=== PATIENT | male | born 1960 | race Caucasian/White ===

== ENCOUNTER → 2022-03-08 14:21 | Outpatient (CLI) | payer MEDICAID, SELFPAY ==
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
--- NOTE | 2022-03-08 14:56 | XR_ITS ---
FINAL REPORT CLINICAL HISTORY: edema FINDINGS: PA and lateral views of the chest were obtained. There is no prior exam for comparison. The cardiac and mediastinal silhouettes are within normal limits. There is evidence of old granulomatous disease. The lungs are otherwise clear. There is no pleural effusion or pneumothorax. No acute osseous abnormality is identified. IMPRESSION: No radiographic evidence of acute cardiac or pulmonary disease. Reviewed, Interpreted and Dictated by Jillian Mello MD Transcribed by Elbert Romero Authenticated and [facility]
--- NOTE | 2022-03-08 14:56 | XR_ITS ---
FINAL REPORT CLINICAL HISTORY: pain with swelling, area of swelling below left patella, medial aspect of left knee. FINDINGS: AP, oblique, and lateral views of the left knee were obtained. There is no acute fracture or dislocation. Joint spaces preserved. Soft tissues are normal. IMPRESSION: No acute osseous abnormality of the left knee. Reviewed, Interpreted and Dictated by Jillian Mello MD Transcribed by Elbert Romero Authenticated and [facility]
[2022-03-08 17:05] LABS: Chloride 103 mmol/L (98-107); Potassium 4.6 mmoL/L (3.5-5.1); Sodium 140 mmol/L (136-145)
[2022-03-08 17:08] LABS: Alanine Aminotransferase 30 U/L (12-78); Alkaline Phosphatase 55 U/L (38-126); Anion Gap 10.6 mEq/L (5-15); Aspartate Amino Transferase 36 U/L (17-59); Bilirubin,Total 0.4 mg/dl (0.2-1.3); Blood Urea Nitrogen 12 mg/dl (9-20); Carbon Dioxide 31 mmol/L (22.0-30.0); Estimated Glomerular Filt Rate 138 ml/min (>60); GFR (African American) 167 ML/MIN (>60)
[2022-03-08 17:09] LABS: Albumin Level 4.2 g/dl (3.5-5.0); Calcium 9.3 mg/dl (8.4-10.2); Glucose 115 mg/dl (74-100)
[2022-03-08 17:11] LABS: Albumin/Globulin Ratio 1.3 (1.1-1.8); Globulin 3.3 g/dL (1.3-3.2); Total Protein,Serum 7.5 g/dl (6.3-8.2)
[2022-03-08 17:17] LABS: NT Pro Brain Natriuretic Pep. 140 pg/mL (0-125)
== END ==
PROVIDERS: PCP Family Medicine; Visit Provider Family Medicine
DX: M79.605 Pain in left leg (principal); L03.116 Cellulitis of left lower limb; E66.01 Morbid (severe) obesity due to excess calories; Z68.41 Body mass index [BMI] 40.0-44.9, adult
CPT/HCPCS: 36415; 71046; 73562; 73610; 80053; 83880; 85378; 93970

== ENCOUNTER → 2022-12-10 23:27 | Outpatient (CLI) | payer MEDICAID, SELFPAY ==
[2022-12-10 19:23] LABS: Basophils % 0.4 % (0.1-2.0); Eosinophils # 0.2 K/mm3 (0.0-0.4); Eosinophils % 3.3 % (0.1-12.0); Hematocrit 43.8 % (42.0-52.0); Hemoglobin 14.4 g/dL (14.1-18.0); Lymphocytes # 2.6 K/mm3 (0.7-4.5); Lymphocytes % 38.7 % (10-50); Mean Corpuscular HGB Conc 32.9 g/dL (31.8-35.4); Mean Corpuscular Hemoglobin 28.8 pg (27.0-31.2); Mean Corpuscular Volume 87.6 fl (80-94); Mean Platelet Volume 9.1 fl (7.4-10.4); Monocytes # 0.4 K/mm3 (0.1-1.0); Monocytes % 5.8 % (1.7-9.3); Neutrophils # 3.5 K/mm3 (1.8-7.8); Neutrophils % 51.7 % (37.0-80.0); Platelet Count 232 K/mm3 (142-424); Red Cell Distribution Width 13.5 % (11.5-17.5); White Blood Count 6.7 K/mm3 (4.8-10.8)
[2022-12-10 19:45] LABS: Chloride 97 mmol/L (98-107)
[2022-12-10 19:46] LABS: Potassium 4.2 mmoL/L (3.5-5.1); Sodium 140 mmol/L (136-145)
[2022-12-10 19:48] LABS: Blood Urea Nitrogen 16 mg/dl (9-20); Estimated Glomerular Filt Rate 86 ml/min (>60); GFR (African American) 104 ML/MIN (>60)
[2022-12-10 19:49] LABS: Alanine Aminotransferase 32 U/L (12-78); Albumin Level 4.2 g/dl (3.5-5.0); Albumin/Globulin Ratio 1.3 (1.1-1.8); Alkaline Phosphatase 51 U/L (38-126); Anion Gap 15.2 mEq/L (5-15); Aspartate Amino Transferase 35 U/L (17-59); Bilirubin,Total 0.4 mg/dl (0.2-1.3); Calcium 8.9 mg/dl (8.4-10.2); Carbon Dioxide 32 mmol/L (22.0-30.0); Cholesterol 191 mg/dl (140-200); Globulin 3.2 g/dL (1.3-3.2); Glucose 99 mg/dl (74-100); HDL Cholesterol 37 mg/dl (40-60); Total Protein,Serum 7.4 g/dl (6.3-8.2); Triglycerides 329 mg/dl (30-150); VLDL Cholesterol 66 mg/dL (0-40)
[2022-12-10 19:50] LABS: Chol/HDL Ratio 5.2 (1-3.5)
[2022-12-10 20:00] LABS: Direct LDL Cholesterol 113.52 mg/dL (100-129)
[2022-12-10 20:20] LABS: Prostate Specific Ag Screen 0.5 ng/ml (0.0-4.0)
== END ==
PROVIDERS: PCP Family Medicine; Visit Provider Family Medicine
DX: I50.9 Heart failure, unspecified (principal); Z12.5 Encounter for screening for malignant neoplasm of prostate
CPT/HCPCS: 80053; 80061; 85025; G0103

== ENCOUNTER → 2022-12-27 11:41 | Outpatient (CLI) | payer MEDICAID, SELFPAY ==
--- NOTE | 2022-12-27 11:45 | XR_ITS ---
FINAL REPORT CLINICAL HISTORY: low back pain COMPARISON: None FINDINGS: Three views of the lumbosacral spine were obtained. There is no fracture present. Moderate degenerative change. There is mild retrolisthesis of L3 on L4 and L4 on L5. There is 14 mm of anterolisthesis of L5 on S1. There are probable bilateral L5 pars defects. Dextroscoliosis is noted. IMPRESSION: Multilevel degenerative disc disease. Reviewed, Interpreted and Dictated by Warren Vail III, MD Transcribed by Aisha Castro Authenticated and [facility]
== END ==
PROVIDERS: PCP Family Medicine; Visit Provider Family Medicine
DX: M54.50 Low back pain, unspecified (principal)
CPT/HCPCS: 72100

== ENCOUNTER → 2023-01-03 10:59 | Outpatient (CLI) | payer MEDICAID, SELFPAY | PROVIDERS: PCP Family Medicine; Visit Provider Nurse Practitioner Family | DX: R06.02 Shortness of breath (principal); I10 Essential (primary) hypertension; R60.9 Edema, unspecified; R94.31 Abnormal electrocardiogram [ECG] [EKG] | CPT/HCPCS: 93306 ==

== ENCOUNTER 2023-01-11 11:46 | Emergency (ER) | payer MEDICAID, SELFPAY ==
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
[2023-01-11 12:00] VITALS: BP 130/91; PULSE 60; RESP 20; TEMP 36.8; O2SAT 98; BMI 42.0
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
--- NOTE | 2023-01-11 12:15 | PC.NURSE ---
spoke with pharmacy and MD who states 10mg norco to be given. verified return with jakob rn
[2023-01-11 13:08] VITALS: BP 124/85; PULSE 72; O2SAT 96
--- NOTE | 2023-01-11 13:11 | PC.NURSE ---
Report from Donnell Jean Baptiste RN at bedside
[2023-01-11 14:23] VITALS: BP 134/72; PULSE 61; RESP 20; TEMP 36.8; O2SAT 96
== END 2023-01-11 14:25 | disposition home or self-care (01) ==
PROVIDERS: Emergency Provider Student in an Organized Health Care Education/Training Program; PCP Family Medicine
DX: S33.0XXA Traumatic rupture of lumbar intervertebral disc, initial encounter (principal); S39.012A Strain of muscle, fascia and tendon of lower back, initial encounter; S29.012A Strain of muscle and tendon of back wall of thorax, initial encounter; M79.605 Pain in left leg; V43.54XA Car driver injured in collision with van in traffic accident, initial encounter; F17.200 Nicotine dependence, unspecified, uncomplicated; I10 Essential (primary) hypertension
CPT/HCPCS: 72128; 72131; 73562; 73590; 73600; 73620; 99284; 99285

== ENCOUNTER → 2023-01-29 12:35 | Outpatient (CLI) | payer MEDICAID, SELFPAY ==
--- NOTE | 2023-01-29 12:58 | MR_ITS ---
FINAL REPORT CLINICAL HISTORY: L leg pain and edema lateral ankle pain FINDINGS: Multiplanar MR imaging of the left ankle was performed without contrast. The bony structures are intact without evidence of fracture, bone bruise or marrow edema. There is a tiny cyst in the medial talar dome, probably not an osteochondral lesion. No osteochondral lesion is identified. The ligaments are intact without evidence of injury. The flexor and extensor tendons are intact. The posterior plantar aponeurosis reveals slight thickening and abnormal signal on the lateral aspect compatible with a lateral plantar fasciitis. No significant joint effusion is seen. The musculature is intact. There is marked soft tissue swelling of the dorsal foot and the soft tissues of the ankle. IMPRESSION: Abnormal signal at the insertion of the plantar fascia more prominent on the lateral side compatible with a lateral plantar fasciitis. Diffuse soft tissue swelling of the dorsum of the foot and ankle. Reviewed, Interpreted and Dictated by David Morales MD Transcribed by Karena Herndon Authenticated and [facility]
--- NOTE | 2023-01-29 12:58 | MR_ITS ---
FINAL REPORT CLINICAL HISTORY: L leg pain and edema lateral side of heel has a burning sensation FINDINGS: Multiplanar MR imaging of the left foot was performed without contrast. The bony structures are intact without evidence of fracture, bone bruise or marrow edema. The flexor and extensor tendons are intact. The musculature is intact. There is abnormal signal at the insertion of the plantar fascia more prominent on the lateral side suggestive of a lateral plantar fasciitis. There is diffuse soft tissue swelling on the dorsum of the foot measuring approximately 1.5 cm in depth. The soft tissue swelling extends into the ankle. IMPRESSION: Abnormal signal involving primarily the lateral insertion of the plantar fascia, most likely lateral plantar fasciitis. Marked soft tissue swelling on the dorsum of the foot extending into the ankle. Reviewed, Interpreted and Dictated by David Morales MD Transcribed by Karena Herndon Authenticated and . [facility]
[2023-01-29 17:11] LABS: Basophils % 0.5 % (0.1-2.0); Eosinophils # 0.2 K/mm3 (0.0-0.4); Eosinophils % 2.7 % (0.1-12.0); Hematocrit 40.9 % (42.0-52.0); Hemoglobin 13.6 g/dL (14.1-18.0); Lymphocytes # 2.1 K/mm3 (0.7-4.5); Lymphocytes % 32.5 % (10-50); Mean Corpuscular HGB Conc 33.3 g/dL (31.8-35.4); Mean Corpuscular Hemoglobin 28.3 pg (27.0-31.2); Mean Corpuscular Volume 84.9 fl (80-94); Mean Platelet Volume 8.8 fl (7.4-10.4); Monocytes # 0.3 K/mm3 (0.1-1.0); Monocytes % 4.8 % (1.7-9.3); Neutrophils # 3.9 K/mm3 (1.8-7.8); Neutrophils % 59.4 % (37.0-80.0); Platelet Count 239 K/mm3 (142-424); Red Blood Count 4.82 M/mm3 (4.60-6.20); Red Cell Distribution Width 13.6 % (11.5-17.5); White Blood Count 6.5 K/mm3 (4.8-10.8)
[2023-01-29 17:38] LABS: Alanine Aminotransferase 29 U/L (12-78); Albumin Level 3.9 g/dl (3.5-5.0); Alkaline Phosphatase 48 U/L (38-126); Anion Gap 14.6 mEq/L (5-15); Aspartate Amino Transferase 33 U/L (17-59); Bilirubin,Indirect 0.3 mg/dL (0.0-0.9); Bilirubin,Total 0.3 mg/dl (0.2-1.3); Bilirubin,Unconjugated 0.5 mg/dL (0.0-1.1); Blood Urea Nitrogen 14 mg/dl (9-20); Carbon Dioxide 30 mmol/L (22.0-30.0); Chloride 101 mmol/L (98-107); Chol/HDL Ratio 4.8 (1-3.5); Cholesterol 179 mg/dl (140-200); Estimated Glomerular Filt Rate 115 ml/min (>60); GFR (African American) 139 ML/MIN (>60); Glucose 111 mg/dl (74-100); HDL Cholesterol 37 mg/dl (40-60); Magnesium 2.1 mg/dl (1.6-2.3); Potassium 4.6 mmoL/L (3.5-5.1); Sodium 141 mmol/L (136-145); Total Protein,Serum 6.9 g/dl (6.3-8.2); Triglycerides 177 mg/dl (30-150); VLDL Cholesterol 35 mg/dL (0-40)
[2023-01-29 17:52] LABS: Free T4 (Free Thyroxine) 1.06 ng/dl (0.78-2.19)
[2023-01-29 17:55] LABS: Direct LDL Cholesterol 96.93 mg/dL (100-129)
== END ==
PROVIDERS: PCP Emergency Medicine; Visit Provider Physician Assistant
DX: M25.572 Pain in left ankle and joints of left foot (principal); S89.90XA Unspecified injury of unspecified lower leg, initial encounter; I10 Essential (primary) hypertension; R94.31 Abnormal electrocardiogram [ECG] [EKG]; V87.7XXA Person injured in collision between other specified motor vehicles (traffic), initial encounter
CPT/HCPCS: 36415; 73718; 73721; 80048; 80061; 80076; 83735; 84439; 84443; 85025

== ENCOUNTER → 2023-02-01 10:18 | Outpatient (CLI) | payer MEDICAID, SELFPAY ==
--- NOTE | 2023-02-01 10:18 | CA_ITS ---
APPROVED REPORT Exam: Pharmacologic Technologist: Sandra Burnham, Ht: 6 ft 2 in Wt: 325 lbs BSA: 2.67 m2 HR: 63 bpm BP: 149/99 mmHg Rhythm: NSR Medical History Medications: TorSEMIDE,,,,, Potassium Chloride ER,,,,, Stress Test Details Test: LEXISCAN HR Resting HR: 68 bpm Max Heart Rate (APMHR): 160 bpm Max HR Achieved: 97 bpm Target HR (85% APMHR): 136 bpm % of APMHR: 61 BP Resting BP: 144/99 mmHg Max BP: 151/87 mmHg ECG Resting ECG: Normal sinus rhythm Stress ECG: No change Arrhythmia: PAC, PVC Recovery ECG: No change Recovery Arrhythmia: PAC Clinical Exercise duration: 04:00 min Highest Stage Achieved: Exercise capacity: n/a METs Stress ECG Conclusion The patient denied any symptoms during the administration of Lexiscan. Baseline ECG demonstrates normal sinus rhythm. No ST changes were present following pharmacologic stress testing. Occasional PVCs and PACs were noted during stress, and occasional PACs were present during recovery. CONCLUSION Unremarkable Lexiscan stress test. Myoview images are reported separately. Test Summary REST 06:57 . . 68 . 144/ 99 . . Stage 1 01:00 . . 83 . . . . Stage 2 01:00 . . 91 . . . . Stage 3 01:00 . . 79 . 147/105 . . Stage 4 01:00 . . 79 . 137/ 85 . Stop exercise at 04:00 RECOVERY 01:00 . . 79 . 148/ 80 . . RECOVERY 02:00 . . 79 . 148/ 80 . . RECOVERY 03:00 . . 79 . 151/ 87 . . RECOVERY 03:38 . . 82 . 148/ 84 . . Electronically signed by : Shakila Garrison, 02/04/2023 00:50:36
--- NOTE | 2023-02-01 10:18 | NM_ITS ---
APPROVED REPORT Exam: Nuclear Stress Test Indication: OBESITY, EDEMA, SYNCOPE Patient Location: Outpatient Stress Tech: Sandra Rawls ME Tech:ALEX Robert RT (R)(N)(M) Ht: 6 ft 2 in Wt: 325 lbs HR: 68 bpm BP: 144/99 mmHg BSA: 2.67 m2 TID: 1.25 BMI: 41.7 History: OBESITY, EDEMA, SYNCOPE Procedure: Patient received 0.4 mg of intravenous Lexiscan, resting heart rate 68 bpm, resting blood pressure 144/99 mmHg, with Lexiscan maximum heart rate achieved was 97 bpm which is % of the maximum predicted heart rate and blood pressure was 151/87 mmHg. With Lexiscan, patient denied any complaint of chest pain. Cardiac Stress and Resting SPECT Images: Cardiac Stress and Resting SPECT images were obtained using technetium 99m Myoview 32.1 mCi stress and 10.22 mCi at rest. This is a technically difficult study due to overlying soft tissue structures in the proximity of the cardiac silhouette. This may affect the diagnostic interpretation of the study findings. Resting and stress perfusion imaging in supine position demonstrate large sized, moderate, fixed perfusion defect in the inferior and inferoapical LV anand. This is no longer visualized with prone stress imaging. Findings are suggestive of diaphragmatic attenuation. There is mild increase in transient ischemic dilatation ratio (TID 1.25), suggestive of possible balanced ischemia or multivessel disease. Gated imaging demonstrates low normal global and regional LV systolic function. LVEF is calculated at 51%. Conclusion: This is a technically difficult study due to overlying soft tissue structures in the proximity of the cardiac silhouette. This may affect the diagnostic interpretation of the study findings. Diaphragmatic attenuation is present. No definite reversible or fixed perfusion defects. Mild increase in transient ischemic dilatation ratio (TID 1.25), suggestive of possible balanced ischemia or multivessel disease. Gated imaging demonstrates low normal global and regional LV systolic function. LVEF is calculated at 51%. Electronically signed by : Shakila Garrison, 02/04/2023 00:57:08
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
== END ==
PROVIDERS: PCP Family Medicine; Visit Provider Family Medicine
DX: R42 Dizziness and giddiness (principal); I10 Essential (primary) hypertension; R60.9 Edema, unspecified; R94.31 Abnormal electrocardiogram [ECG] [EKG]
CPT/HCPCS: 70450; 78452; 93017; A9502; J2785

== ENCOUNTER → 2023-02-11 11:53 | Outpatient (CLI) | payer MEDICAID, SELFPAY | PROVIDERS: PCP Family Medicine; Visit Provider Nurse Practitioner Family | DX: G47.33 Obstructive sleep apnea (adult) (pediatric) (principal); I10 Essential (primary) hypertension | CPT/HCPCS: 95806 ==

== ENCOUNTER 2023-02-27 08:05 | Day surgery (SDC) | payer MEDICAID, SELFPAY ==
[2023-02-27] VITALS (13 sets, daily range): BP systolic 123–167; BP diastolic 63–99; PULSE 51–70; RESP 16–20; TEMP 36.3; O2SAT 95–97; BMI 41.1
--- NOTE | 2023-02-27 | IR_ITS ---
APPROVED REPORT Patient Location: Outpatient PROCEDURES Left heart catheterization Left ventriculogram Selective coronary angiogram INDICATION High risk abnormal Myoview, Angina pectoris, Informed consent was obtained prior to the procedure. COMPLICATIONS None Estimated Blood Loss: Less than 10 mls TECHNIQUE One percent lidocaine used to anesthetize the right anterior aspect of the wrist. The right radial artery was accessed via the Seldinger technique. A 6 Hungarian sheath was placed in the right radial artery. 150 mg magnesium sulfate, 800 mcg of nitroglycerin, 1mg Lidocaine and 5000 U Heparin were given through the arterial sheath. The papa catheter was also used to perform left heart catheterization, left ventriculogram and selective coronary angiogram. At the end of the procedure the sheath was removed good hemostasis was achieved using Traclet band, patient was transferred to the postop holding area in stable condition. 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 Uptitrate diuretics and treatment of diastolic dysfunction 2. Recommend sleep study Electronically signed by : Godfrey Castillo MD 02/27/2023 13:48:10
[2023-02-27 08:44] LABS: Anion Gap 10.5 mEq/L (5-15); Blood Urea Nitrogen 12 mg/dl (9-20); Carbon Dioxide 31 mmol/L (22.0-30.0); Chloride 104 mmol/L (98-107); Creatinine Clearance Estimated 276 mL/min (50-200); Estimated Glomerular Filt Rate 137 ml/min (>60); GFR (African American) 166 ML/MIN (>60); Glucose 141 mg/dl (74-100); Potassium 4.5 mmoL/L (3.5-5.1); Sodium 141 mmol/L (136-145)
[2023-02-27 08:46] LABS: Basophils # 0.1 K/mm3 (0-0.2); Basophils % 0.9 % (0.1-2.0); Eosinophils # 0.2 K/mm3 (0.0-0.4); Eosinophils % 4.4 % (0.1-12.0); Hemoglobin 14.6 g/dL (14.1-18.0); Lymphocytes % 36.7 % (10-50); Mean Corpuscular HGB Conc 31.6 g/dL (31.8-35.4); Mean Corpuscular Hemoglobin 28.3 pg (27.0-31.2); Mean Corpuscular Volume 89.3 fl (80-94); Mean Platelet Volume 8.5 fl (7.4-10.4); Monocytes # 0.3 K/mm3 (0.1-1.0); Monocytes % 5.7 % (1.7-9.3); Neutrophils # 2.8 K/mm3 (1.8-7.8); Neutrophils % 52.3 % (37.0-80.0); Platelet Count 225 K/mm3 (142-424); Red Blood Count 5.15 M/mm3 (4.60-6.20); Red Cell Distribution Width 13.4 % (11.5-17.5); White Blood Count 5.4 K/mm3 (4.8-10.8)
[2023-02-27 08:52] LABS: INR 0.98 (0.9-1.1); Prothrombin Time 10.6 seconds (10.1-12.5)
--- NOTE | 2023-02-27 11:48 | SUR.PHASEII ---
1143 to complained of sharp chest pain BP:133/68, HR 56, RR 17, O2 95% 1145 dr. tamez notified- EKG ordered 1146 called respiratory for ekg 1149 respiratory at bedside.
--- NOTE | 2023-02-27 11:51 | ECG_ITS ---
APPROVED REPORT Exam: Resting ECG HR:54 bpm ECG Measurements Heart Rate 54 AXES AZ 193 P 30 QRSd 107 QRS -10 QT 446 T 61 QTc 432 Conclusion SINUS BRADYCARDIA BORDERLINE ECG UNCONFIRMED REPORT Electronically signed by : Bethel Baker MD 02/27/2023 21:01:25
--- NOTE | 2023-02-27 12:16 | SUR.PHASEII ---
DR. CUETO NOTIFIED OF EKG READING AT 1154 NO NEW ORDERS AT THIS TIME.
== END 2023-02-27 14:35 | disposition home or self-care (01) ==
PROVIDERS: PCP Family Medicine; Visit Provider Internal Medicine
DX: R94.39 Abnormal result of other cardiovascular function study (principal); I10 Essential (primary) hypertension; F17.210 Nicotine dependence, cigarettes, uncomplicated; Z79.899 Other long term (current) drug therapy; R94.31 Abnormal electrocardiogram [ECG] [EKG]; I25.10 Atherosclerotic heart disease of native coronary artery without angina pectoris; R06.00 Dyspnea, unspecified
CPT/HCPCS: 80048; 85025; 85610; 93005; 93458; 99152; C1725; C1760; C1769; J1644; Q9967

== ENCOUNTER → 2023-03-13 15:06 | Outpatient (CLI) | payer MEDICAID, SELFPAY ==
[2023-03-13 15:41] LABS: Chloride 97 mmol/L (98-107)
[2023-03-13 15:42] LABS: Potassium 4.3 mmoL/L (3.5-5.1); Sodium 140 mmol/L (136-145)
[2023-03-13 15:45] LABS: Anion Gap 11.3 mEq/L (5-15); Blood Urea Nitrogen 19 mg/dl (9-20); Calcium 9.1 mg/dl (8.4-10.2); Carbon Dioxide 36 mmol/L (22.0-30.0); Estimated Glomerular Filt Rate 115 ml/min (>60); GFR (African American) 139 ML/MIN (>60); Glucose 153 mg/dl (74-100)
== END ==
PROVIDERS: PCP Family Medicine; Visit Provider Nurse Practitioner Family
DX: R06.00 Dyspnea, unspecified (principal); I10 Essential (primary) hypertension; Q24.5 Malformation of coronary vessels; R40.0 Somnolence; R60.9 Edema, unspecified; R94.31 Abnormal electrocardiogram [ECG] [EKG]
CPT/HCPCS: 36415; 80048

== ENCOUNTER → 2023-03-25 10:14 | Outpatient (CLI) | payer MEDICAID, SELFPAY ==
[2023-03-25 10:57] LABS: Hemoglobin A1C 6.7 % (4.0-6.0)
[2023-03-25 11:12] LABS: NT Pro Brain Natriuretic Pep. 37.3 pg/mL (0-125)
== END ==
PROVIDERS: PCP Family Medicine; Visit Provider Family Medicine
DX: M54.50 Low back pain, unspecified (principal); R60.0 Localized edema; I10 Essential (primary) hypertension; R60.9 Edema, unspecified
CPT/HCPCS: 36415; 83036; 83880

== ENCOUNTER → 2023-04-11 23:37 | Outpatient (CLI) | payer MEDICAID, SELFPAY ==
[2023-04-11 19:05] LABS: Chloride 98 mmol/L (98-107); Potassium 4.5 mmoL/L (3.5-5.1); Sodium 138 mmol/L (136-145)
[2023-04-11 19:08] LABS: Alanine Aminotransferase 31 U/L (12-78); Albumin/Globulin Ratio 1.2 (1.1-1.8); Alkaline Phosphatase 58 U/L (38-126); Anion Gap 15.5 mEq/L (5-15); Aspartate Amino Transferase 30 U/L (17-59); Bilirubin,Total 0.4 mg/dl (0.2-1.3); Blood Urea Nitrogen 21 mg/dl (9-20); Calcium 9.5 mg/dl (8.4-10.2); Carbon Dioxide 29 mmol/L (22.0-30.0); Estimated Glomerular Filt Rate 115 ml/min (>60); GFR (African American) 139 ML/MIN (>60); Globulin 3.4 g/dL (1.3-3.2); Glucose 154 mg/dl (74-100); Total Protein,Serum 7.4 g/dl (6.3-8.2)
== END ==
PROVIDERS: PCP Family Medicine; Visit Provider Family Medicine
DX: I10 Essential (primary) hypertension (principal)
CPT/HCPCS: 80053

== ENCOUNTER → 2023-05-01 10:51 | Outpatient (POV) | payer MEDICAID, SELFPAY ==
[2023-05-01 12:17] VITALS: BP 143/51; PULSE 61; RESP 18; O2SAT 97; BMI 43.6
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
== END ==
PROVIDERS: PCP Family Medicine; Visit Provider Nurse Practitioner Family
DX: M79.604 Pain in right leg (principal); M79.605 Pain in left leg; M51.16 Intervertebral disc disorders with radiculopathy, lumbar region; M48.061 Spinal stenosis, lumbar region without neurogenic claudication
CPT/HCPCS: 99202; G0463

== ENCOUNTER 2023-05-14 09:55 | Day surgery (SDC) | payer MEDICAID, SELFPAY ==
[2023-05-14 10:18] VITALS: BP 145/75; PULSE 59; RESP 16; TEMP 37.1; O2SAT 93; BMI 44.3
[2023-05-14 10:24] VITALS: BP 166/79; PULSE 75; RESP 18; O2SAT 97
[2023-05-14 10:25] VITALS: BP 166/79; PULSE 75; RESP 18; O2SAT 97
[2023-05-14 10:30] VITALS: BP 167/92; PULSE 59; RESP 18; O2SAT 93
--- NOTE | 2023-05-14 11:04 | EXP.PAIN.PRO ---
Procedure Date: 05/14/23 Time: 10:40 Anesthesiologist:: González Etienne CRNA Complications:: None Pre-procedure Diagnosis:: Degenerative disc disease lumbar spine multilevels. Lumbar radiculopathy. Lumbar spinal stenosis Post-procedure Diagnosis:: Same. Indications for Procedure:: Patient is a very pleasant 62-year-old male that comes our clinic today for lumbar epidural steroid injection at L5-S1 level. Patient complains of low back pain he describes as constant, dull, aching. Patient also complains of bilateral hip and leg radicular symptoms. Patient makes wood furniture daily. Requires heavy lifting. Patient has difficulty with flexion, extension, left and right rotation. He rates his pain 8/10 Procedure Details:: Procedure: Lumbar epidural steroid injection under fluoroscopy Informed consent was obtained and the risks and benefits of the procedure were explained to the patient. The patient was taken to the procedure room and noninvasive monitors placed, including noninvasive blood pressure cuff and pulse oximeter. The back was viewed using C-arm Fluoroscopy and prepped using Chloraprep as a cleansing solution and the L5-S1 interspace was palpated. Skin and subcutaneous tissues were anesthetized using lidocaine 1.5% and a 25-gauge needle. After this, an 18-gauge Touhy epidural needle was placed into the L5-S1 interspace and advanced using fluoroscopic guidance and loss of resistance to air until the epidural space was encountered. After confirmation of needle placement in the epidural space, with dye, a solution containing normal saline, 3 mL and Depo-Medrol 80 mg were incrementally injected into the lumbar epidural space. The patient tolerated the procedure well with no complications. The patient was observed in the Pain Clinic and then discharged home neurologically intact. Plan and Disposition:: Patient was discharged without incident.
== END 2023-05-14 10:30 | disposition home or self-care (01) ==
LOC: SC.PAINP 09:56
PROVIDERS: PCP Family Medicine; Visit Provider Nurse Anesthetist, Certified Registered
DX: M51.16 Intervertebral disc disorders with radiculopathy, lumbar region (principal); M48.061 Spinal stenosis, lumbar region without neurogenic claudication
CPT/HCPCS: 62323; J1040

== ENCOUNTER → 2023-06-07 09:35 | Outpatient (POV) | payer MEDICAID, SELFPAY ==
[2023-06-07 10:12] VITALS: BP 146/80; PULSE 57; RESP 19; O2SAT 95; BMI 44.3
--- NOTE | 2023-06-07 10:16 | EXP.PAIN.SOA ---
[facility] Pain Management SOAP Note Subjective:: Patient is a pleasant 62-year-old male that comes our clinic today for follow-up visit after receiving lumbar epidural steroid injection on 05/14/2023. Patient reports 70 present improvement terms of his overall low back pain as well as bilateral hip and leg radicular symptoms. Today he is reporting some low dull, aching back pain early in the morning when starting his day. However, patient reports pain decreases in intensity as the day goes on. Patient continued to have some hip and leg radicular symptoms bilaterally. Patient is requesting a second injection if possible. I think this is reasonable. He rates his pain today 12/19. 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 His Ottoniel #[id number] has been reviewed and appropriate. Patient takes Tylenol and NSAIDs as needed to help with pain. Patient states the medications help slightly with his pain. Objective:: Patient is awake alert [place] x3. In no acute distress. Flexion-extension lumbar spine somewhat guarded secondary to pain. Deep tendon reflexes upper lower extremities normal. There is no gross sensory deficit. Gait is normal. Assessment:: Degenerative disc lumbar spine multilevels. Lumbar radiculopathy. Lumbar spinal stenosis. Plan:: We will plan a second lumbar epidural steroid injection at the L4-[address] [facility] Disclaimer: The information contained in this section may have been updated after the patient was seen, as this information can be updated by other users. Medical History Abnormal electrocardiogram [ECG] [EKG] Daytime somnolence HTN (hypertension) Snoring Social History Smoking Status: Current every day smoker alcohol intake: former substance use type: denies use current occupational status: employed Travel in the last 8 weeks: None household members: spouse housing: other
== END ==
PROVIDERS: PCP Family Medicine; Visit Provider Nurse Anesthetist, Certified Registered
DX: M51.16 Intervertebral disc disorders with radiculopathy, lumbar region (principal); M48.061 Spinal stenosis, lumbar region without neurogenic claudication
CPT/HCPCS: 99212; G0463

== ENCOUNTER 2023-06-18 13:07 | Day surgery (SDC) | payer MEDICAID, SELFPAY ==
[2023-06-18 13:15] VITALS: BP 141/97; PULSE 59; RESP 16; TEMP 36.4; O2SAT 96; BMI 30.8
[2023-06-18 13:24] VITALS: BP 155/100; PULSE 61; RESP 18; O2SAT 96
[2023-06-18 13:25] VITALS: BP 155/100; PULSE 61; RESP 18; O2SAT 96
--- NOTE | 2023-06-18 13:27 | EXP.PAIN.PRO ---
Procedure Date: 06/18/23 Time: 13:20 Anesthesiologist:: González Etienne CRNA Complications:: None Pre-procedure Diagnosis:: Degenerative disc lumbar spine multilevels. Lumbar radiculopathy. Post-procedure Diagnosis:: Same. Indications for Procedure:: Patient is a very pleasant 62-year-old male comes our clinic today for lumbar epidural steroid injection at the L4-5 level. Patient describes low back pain as constant, dull, aching. Patient responded very well to lumbar epidural steroid injection on 05/14/2023. Patient reports bilateral hip and leg radicular symptoms at times. He rates his pain 7/10. Procedure Details:: Procedure: Lumbar epidural steroid injection under fluoroscopy Informed consent was obtained and the risks and benefits of the procedure were explained to the patient. The patient was taken to the procedure room and noninvasive monitors placed, including noninvasive blood pressure cuff and pulse oximeter. The back was viewed using C-arm Fluoroscopy and prepped using Chloraprep as a cleansing solution and the L4-L5 interspace was palpated. Skin and subcutaneous tissues were anesthetized using lidocaine 1.5% and a 25-gauge needle. After this, an 18-gauge Touhy epidural needle was placed into the L4-L5 interspace and advanced using fluoroscopic guidance and loss of resistance to air until the epidural space was encountered. After confirmation of needle placement in the epidural space, with dye, a solution containing normal saline, 3 mL and Depo-Medrol 80 mg were incrementally injected into the lumbar epidural space. The patient tolerated the procedure well with no complications. The patient was observed in the Pain Clinic and then discharged home neurologically intact. Plan and Disposition:: Patient was discharged without incident.
[2023-06-18 13:34] VITALS: BP 142/87; PULSE 59; RESP 18; O2SAT 96
== END 2023-06-18 13:34 | disposition home or self-care (01) ==
PROVIDERS: PCP Family Medicine; Visit Provider Nurse Anesthetist, Certified Registered
DX: M51.16 Intervertebral disc disorders with radiculopathy, lumbar region (principal)
CPT/HCPCS: 62323; J1040

== ENCOUNTER → 2023-07-01 13:50 | Outpatient (POV) | payer MEDICAID, SELFPAY ==
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
[2023-07-01 14:04] VITALS: BP 150/89; PULSE 68; RESP 18; O2SAT 97; BMI 43.6
== END ==
PROVIDERS: PCP Family Medicine; Visit Provider Nurse Practitioner Family
DX: M51.16 Intervertebral disc disorders with radiculopathy, lumbar region (principal); M48.061 Spinal stenosis, lumbar region without neurogenic claudication
CPT/HCPCS: 99212; G0463

== ENCOUNTER 2023-07-09 08:00 | Outpatient (RCR) | payer MEDICAID, SELFPAY ==
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
--- NOTE | 2023-06-07 08:54 | HMH.RHREAS ---
Rehab Reassessment Rehab OP Re-assessment Start: 05/08/23 09:23 Freq: Status: Active Protocol: Document 06/07/23 08:40 EVAN (Rec: 06/07/23 08:54 EVAN [id number]) E-signed By Leodan Santillan, PT Oswestry Index Section 1 Pain Intensity The pain is moderate and does not vary much Section 2 Personal Care (Washing,Dresing) increase the pain, but I manage not to change my way of doing it Section 3 Lifting lifting heavy weights off the floor, but I can manage light to medium Section 4 Walking I cannot walk more than one mile wihtout increasing pain Section 5 Sitting Pain prevents me from sitting for more than one hour Section 6 Standing I have some pain on standing, but it does not increase with time Section 7 Sleeping Because of my pain, my normal night's sleep is less than 6 hours sleep Section 8 Social Life Pain has restricted my social life and I do not go out often Section 9 Traveling I get extra pain while traveling, but it does not compel me to seek al Section 10 Changing Degreee of Pain My pain fluctuates, but overall is definitely getting better Score and Risk Level Oswestry Sc 22 Oswestry Risk Level Moderate Disability Rehab Re-assessment Subjective Subjective Patient reports 25% improvement since start of care. I feel like PT is really helping. I go back to pain management next week. Objective Objective Notes AROM: flx 52; ext 9; SBr 11; SBl 9 Myotomes: WNL Pain: 4/10 today; 7/10 at worst Neuro: overall complete centralization of radicular symptoms noted. Assessment Progress Assessment Progressing as Expected Assessment Notes Patient would benefit from continuing with skilled PT services in order to address functional limitations with all standing, walking, bending and lifting activities. Patient has responded well to introduction of lumbar spine mechanical traction. Compliance noted with updated HEP. Patient goals met STG 2 Goals Not Met All others Revised Goals NA Plan Plan Continue with current POC. Frequency of Therapy 2x/week Duration of therapy 4 weeks Time and Billing Re-Eval Time 16 Re-Eval Billing Units 1 PHYSICIAN CERTIFICATION: I certify the specified therapy services for Carl Santos are required, authorized, and reviewed every 30 days.
== END 2023-07-09 09:00 | disposition home or self-care (01) ==
LOC: PT 08:00
PROVIDERS: PCP Family Medicine; Visit Provider Nurse Practitioner Family
DX: M54.50 Low back pain, unspecified (principal); M79.604 Pain in right leg; M79.605 Pain in left leg; R53.1 Weakness
CPT/HCPCS: 97010; 97012; 97014; 97110; 97163; 97164; 97530; G0283

== ENCOUNTER → 2023-07-12 08:37 | Outpatient (CLI) | payer MEDICAID, SELFPAY ==
[2023-07-11 18:49] LABS: Erythrocyte Sedimentation Rate 21 mm/hr (0-20)
== END ==
PROVIDERS: PCP Family Medicine; Visit Provider Family Medicine
DX: R07.9 Chest pain, unspecified (principal)
CPT/HCPCS: 85651

== ENCOUNTER 2023-07-23 10:53 | Day surgery (SDC) | payer MEDICAID, SELFPAY ==
[2023-07-23 11:11] VITALS: BP 144/99; PULSE 61; RESP 16; TEMP 36.5; O2SAT 96; BMI 43.4
[2023-07-23 11:21] VITALS: BP 138/91; PULSE 67; O2SAT 96
[2023-07-23 11:23] VITALS: BP 138/91; PULSE 68; O2SAT 97
[2023-07-23 11:25] VITALS: BP 149/72; PULSE 60; RESP 16; O2SAT 96
--- NOTE | 2023-07-23 11:28 | P.PCN_ITS ---
Procedure Date: 07/23/23 Time: 11:20 Anesthesiologist:: González Etienne CRNA Complications:: None Pre-procedure Diagnosis:: Degenerative disc lumbar spine multilevels. Lumbar radiculopathy. Disc bulge L4-5 and L5-S1. Post-procedure Diagnosis:: Same. Indications for Procedure:: Patient is a very pleasant 63-year-old male comes our clinic today for right L4- 5 and L5-S1 transforaminal epidural steroid injection. Patient complains of low lumbar back pain specifically right sided as well as right hip and leg radicular symptoms to the foot. Patient's lumbar MRI shows disc bulge lumbar spine L3-4, L4-5, L5-S1. He rates his pain 7/10. Patient has received significant improvement terms of his low back pain as well as bilateral hip and leg radicular symptoms with lumbar epidural steroid injections intralaminar. However, his symptoms have become specific to the right hip and leg. Procedure Details:: Details of the procedure were explained to the patient. The patient was taken the procedure room placed in the prone position. The area of the lumbar spine was cleansed using chlorhexidine as a cleansing solution. At this time using fluoroscopy guidance markers were placed on the right lateral border of the L4 and L5 vertebral body. The skin and subcutaneous tissue was anesthetized using 1% lidocaine and 25-gauge needle. At this time using a 22-gauge 3-1/2 inch spinal needle the right upper one third of the L4-5 foramen was accessed. The same was done at the right L5-S1 foramen. Needle positions were confirmed and a lateral view using fluoroscopy and contrast dye. At this time 1 cc of 1% lidocaine +20 mg of Depo-Medrol was injected at each level after negative aspiration. [place] were removed. Band-Aid applied. Patient tolerated the procedure without difficulty. There are no complications. Plan and Disposition:: Patient was discharged without incident.
== END 2023-07-23 11:25 | disposition home or self-care (01) ==
PROVIDERS: PCP Family Medicine; Visit Provider Nurse Anesthetist, Certified Registered
DX: M51.16 Intervertebral disc disorders with radiculopathy, lumbar region (principal); M51.26 Other intervertebral disc displacement, lumbar region
CPT/HCPCS: 64483; 64484; J1040

== ENCOUNTER → 2023-08-14 12:51 | Outpatient (POV) | payer MEDICAID, SELFPAY ==
--- NOTE | 2023-08-14 13:07 | EXP.PAIN.SOA ---
[facility] Pain Management SOAP Note Subjective:: Patient is a pleasant 63-year-old male who presents today for follow-up of right transforaminal steroid injection on 07/23/2023. We are currently treating the patient for degenerative disc disease of lumbar spine with lumbar radiculopathy symptoms, lumbar spinal stenosis. Today he rates his pain 4 out of 10. Patient denies any new trauma or injury. He states he has had approximately 60% improvement and feels like it is still providing additional relief. He states that he has had 100% relief of his leg symptoms since having this injection. He states he has been able to increase his activity with decreased pain symptoms and feels more functional. Patient does state he has a significant heart history and is on a daily fluid pill for this. He also states he has had a flareup of his plantar fasciitis and does see a strategic partnership manager for this. Patient is not on any scheduled medications. His Ottoniel has been reviewed and is appropriate. Review of Systems: General: No recent weight changes, no fever, no sleep disturbances Respiratory: No cough, no shortness of air, no recurring pulmonary infections Cardiovascular/peripheral vascular: No chest pain, no palpitations, no edema, no shortness of breath Gastrointestinal: No new onset incontinence, normal bowel movements reported Genitourinary: No new onset incontinence Musculoskeletal: Low back pain Psychiatric: [Normal mood/affect] Neurological: [Denies weakness in extremities], [denies balance issues] Objective:: Physical Exam: General: Alert and oriented x3, no acute distress, pleasant and cooperative Lungs: Respirations even and unlabored, symmetrical chest expansion Eyes: PERRL Musculoskeletal: Flexion and extension of lumbar [spine] somewhat guarded secondary to pain, [antalgic gait noted] Neurological: Speech clear, no gross sensory deficit Assessment:: Degenerative disc disease of lumbar spine with lumbar radiculopathy symptoms, lumbar spinal stenosis Plan:: Patient has had significant improvement of his low back and leg symptoms following his right transforaminal epidural steroid injection and does not require any additional injection therapy at this time. Patient will return to clinic in 1 month for reevaluation of symptoms and plan of care. Patient has been instructed to contact the clinic with any concerns before the next appointment. Dr. Mckeon has reviewed this note and agrees with this plan of care. This note was dictated using voice recognition software and make contain errors or omissions. [facility] Disclaimer: The information contained in this section may have been updated after the patient was seen, as this information can be updated by other users. Medical History Abnormal electrocardiogram [ECG] [EKG] Chest pain Daytime somnolence HTN (hypertension) Snoring Family History Other No significant family history Social History Smoking Status: Current every day smoker alcohol intake: former substance use type: denies use current occupational status: employed Travel in the last 8 weeks: None household members: spouse housing: other
[2023-08-14 13:10] VITALS: BP 144/85; PULSE 72; RESP 18; O2SAT 96; BMI 43.4
== END ==
LOC: SC.PAIN 12:52
PROVIDERS: PCP Family Medicine; Visit Provider Nurse Practitioner Family
DX: M51.16 Intervertebral disc disorders with radiculopathy, lumbar region (principal); M48.061 Spinal stenosis, lumbar region without neurogenic claudication
CPT/HCPCS: 99212; G0463

== ENCOUNTER 2023-09-04 12:56 | Outpatient (CLI) | payer MEDICAID, SELFPAY ==
--- NOTE | 2023-09-04 12:57 | CA_ITS ---
APPROVED REPORT EXAM: Comprehensive 2D, Doppler, and color-flow Echocardiogram Aircraft Structural Repairer: Amanda Aldrich RT(R) Ht: 6 ft 2 in Wt: 336lbs BSA: 2.71 BP: 131/104 mmHg Indications: SOB, CP, smoker, HTN, CABRAL, obesity, ABN, myocardial bridge, PUSHPA 2D Dimensions LA Volume 58.00 mL LA Volume Index 21.40 mL/m2 (M/F) 16-34 EF AP4 58.50 % GL Strain -19.9 % M-Mode Dimensions RVDd 3.42 cm (0.9-2.6) LA Diam 4.05 cm (1.9-4.0) LVDd 5.85 cm (3.5-5.7) LVDs 4.12 cm (3.5-5.7) IVSd 1.17 cm (0.6-1.1) PWd 0.84 cm (0.6-1.1) EF (Teich) 55.80% FS 29.60% EDV (Teich) 169.90 mL ESV (Teich) 75.10 mL LV Diastology E Decel Time 243 (160-240 msec) E/A Ratio 1.1 Mitral Valve MV E Max Akash. 73.0 (40-130 cm/s) MV A Velocity 66.0 (40-130 cm/s) E/A Ratio 1.10 MV PHT 71.0 ms Left Ventricle The left ventricle is normal size. The left ventricular systolic function is normal. The left ventricular ejection fraction is within the normal range. There is increased LV wall thickness. There is normal LV segmental wall motion. The left ventricular diastolic function is normal. LVEF is 55%. Right Ventricle The right ventricle is normal size. The right ventricular systolic function is normal. Atria The left atrium size is normal. The right atrium size is normal. There is no Doppler evidence of interatrial shunt. Aortic Valve The aortic valve is normal in structure. There is no aortic valvular stenosis. Trace aortic regurgitation is present. Mitral Valve The mitral valve is normal in structure. No evidence of mitral valve stenosis. There is no mitral valve regurgitation noted. Tricuspid Valve The tricuspid valve leaflets are thin and pliable. Trace tricuspid regurgitation. There is insufficient TR jet to estimate RVSP. Pulmonic Valve The pulmonary valve is normal in structure. Trace pulmonic regurgitation. Great Vessels The aortic root is normal in size. The ascending aorta is mildly dilated, measuring 3.9 cm in diameter. IVC is normal in size and collapses >50% with inspiration. Pericardium There is no pericardial effusion. An epicardial fat pad is noted. Other Information Study Quality: Fair Conclusion Normal biventricular systolic function. No significant valvular stenosis or regurgitation. Ascending aorta is mildly dilated, measuring 3.9 cm in diameter. Electronically signed by : Shakila Garrison MD 09/08/2023 13:06:40
--- NOTE | 2023-09-04 13:00 | CA_ITS ---
FINAL REPORT TECHNIQUE: Ultrasound images of the deep venous system were obtained from the left groin to the calf veins. CLINICAL HISTORY: .previous DVT, Lt leg swelling/pain COMPARISON: 03/08/2022 FINDINGS: There is complete thrombus just have this from the mid left femoral vein through the popliteal vein and into the tibial veins. IMPRESSION: Complete left lower extremity thrombus as above Reviewed, Interpreted and Dictated by David Morales MD Transcribed by Aisha Castro Authenticated and . [facility]
== END 2023-09-04 23:59 ==
LOC: RT 12:57
PROVIDERS: PCP Family Medicine; Visit Provider Physician Assistant
DX: R06.00 Dyspnea, unspecified (principal); R94.31 Abnormal electrocardiogram [ECG] [EKG]; Q24.5 Malformation of coronary vessels; I10 Essential (primary) hypertension; G47.33 Obstructive sleep apnea (adult) (pediatric); E66.9 Obesity, unspecified; Z68.41 Body mass index [BMI] 40.0-44.9, adult; R60.0 Localized edema; M79.605 Pain in left leg
CPT/HCPCS: 93306; 93971

== ENCOUNTER → 2023-09-13 08:09 | Outpatient (POV) | payer MEDICAID, SELFPAY ==
[2023-09-13 08:20] VITALS: BP 176/99; PULSE 63; RESP 18; O2SAT 98; BMI 42.3
--- NOTE | 2023-09-13 08:27 | EXP.PAIN.SOA ---
[facility] Pain Management SOAP Note Subjective:: This patient is a pleasant 63-year-old male who comes to clinic today for follow-up visit in regards to his low back pain as well as bilateral hip and leg radicular symptoms. We currently manage the patient for symptoms related to degenerative disc lumbar spine multilevels. Lumbar radiculopathy. Lumbar spinal stenosis. Patient has had intralaminar epidural steroid injections of the lumbar spine. He has also had transforaminal epidural steroid injections on the right L4-5, L5-S1. Both injections have proved significant improvement in terms of his overall symptoms. Today his main complaint is low lumbar back pain that spreads across the low back evenly. This is right above his belt line. He denies radicular symptoms as he has had before however, he does mention bilateral posterior hip pain with ambulation and/or standing for any length of time. He rates his pain 5/10. Patient has chronic coronary disease and is unable to undergo any type of corrective lumbar spine surgery. Patient continues taking Tylenol to help with his symptoms. Objective:: Patient is awake alert [place] x 3. No acute distress. Flexion-extension lumbar spine somewhat guarded secondary to pain. Deep tendon reflexes upper lower extremities normal. Motor strength upper and lower extremities normal. There is no gross sensory deficit. Gait is normal. Assessment:: Degenerative disc lumbar spine multilevels. Lumbar radiculopathy. Lumbar spinal stenosis. Multilevel lumbar disc bulge. Plan:: Patient would like to set up an additional intralaminar lumbar epidural steroid injection in 1 month. He is a whitten. Spring is coming in his activity level will begin to significantly picket labor union. I think this is reasonable given the fact he has had such relief with previous lumbar injections. Patient has tried and failed physical therapy in the last 6 months. Pain increased significantly with physical therapy attempt. Home exercise program has not been of help. [facility] Disclaimer: The information contained in this section may have been updated after the patient was seen, as this information can be updated by other users. Medical History Abnormal electrocardiogram [ECG] [EKG] Chest pain Daytime somnolence HTN (hypertension) Snoring Family History Other No significant family history Social History Smoking Status: Current every day smoker alcohol intake: former substance use type: denies use current occupational status: employed Travel in the last 8 weeks: None household members: spouse housing: other
== END ==
LOC: SC.PAIN 08:09
PROVIDERS: PCP Family Medicine; Visit Provider Nurse Anesthetist, Certified Registered
DX: M51.16 Intervertebral disc disorders with radiculopathy, lumbar region (principal); M48.061 Spinal stenosis, lumbar region without neurogenic claudication; M51.26 Other intervertebral disc displacement, lumbar region
CPT/HCPCS: 99212; G0463

== ENCOUNTER 2023-10-21 08:34 | Outpatient (CLI) | payer MEDICAID, SELFPAY ==
--- NOTE | 2023-10-21 08:38 | CA_ITS ---
FINAL REPORT TECHNIQUE: Color Doppler, duplex Doppler and compression sonography of the left lower extremity deep venous systems was performed. CLINICAL HISTORY: F/U DVT LLE (09/04/23),PT ON XARELTO COMPARISON: 09/04/2023 FINDINGS: There is evidence of thrombus in the left popliteal and superficial femoral veins of the left leg. The calf veins appear patent. There is also thrombus remaining present in the greater saphenous vein. IMPRESSION: There is persistent thrombus in the left popliteal and superficial femoral veins as well as in the greater saphenous vein, consistent with residual venous obstruction, partially improved since the prior exam. Reviewed, Interpreted and Dictated by Warren Vail III, MD Transcribed by Karena Herndon Authenticated and [facility]
== END 2023-10-21 23:59 ==
LOC: RT 08:34
PROVIDERS: PCP Family Medicine; Visit Provider Nurse Practitioner Family
DX: I82.402 Acute embolism and thrombosis of unspecified deep veins of left lower extremity (principal)
CPT/HCPCS: 93971

== ENCOUNTER 2024-01-01 13:22 | Outpatient (POV) | payer MEDICAID, SELFPAY ==
[2024-01-01 13:49] VITALS: BP 164/74; PULSE 71; RESP 18; O2SAT 97; BMI 42.3
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
== END 2024-01-01 23:59 | disposition home or self-care (01) ==
LOC: SC.PAIN 13:23
PROVIDERS: PCP Family Medicine; Visit Provider Nurse Practitioner Family
DX: M51.16 Intervertebral disc disorders with radiculopathy, lumbar region (principal); M48.061 Spinal stenosis, lumbar region without neurogenic claudication; M51.26 Other intervertebral disc displacement, lumbar region
CPT/HCPCS: 99212; G0463

== ENCOUNTER 2024-01-21 12:03 | Day surgery (SDC) | payer MEDICAID, SELFPAY ==
[2024-01-21 12:16] VITALS: BP 154/112; PULSE 63; RESP 16; TEMP 36.6; O2SAT 97; BMI 38.5
[2024-01-21] MEDS: methylPREDNISolone ACETATE 80MG/ML VIAL 80 MG (12:19)
[2024-01-21 12:20] VITALS: BP 150/78; PULSE 76; PULSE 80; RESP 20; O2SAT 97
--- NOTE | 2024-01-21 12:20 | EXP.PAIN.PRO ---
Procedure Date: 01/21/24 Time: 12:15 Anesthesiologist:: González Etienne CRNA Complications:: None Pre-procedure Diagnosis:: Degenerative disc lumbar spine multilevels. Lumbar radiculopathy. Post-procedure Diagnosis:: Same. Indications for Procedure:: Patient is a very pleasant 63-year-old male who comes our clinic today for lumbar epidural steroid injection at the L4-5 level. Patient has had significant proved in terms of his overall low back pain as well as bilateral leg radicular symptoms with previous injections at the same level. Today he rates his pain 7/10. He describes low lumbar back pain as well as bilateral hip and leg radicular symptoms to the feet. Procedure Details:: Procedure: Lumbar epidural steroid injection under fluoroscopy Informed consent was obtained and the risks and benefits of the procedure were explained to the patient. The patient was taken to the procedure room and noninvasive monitors placed, including noninvasive blood pressure cuff and pulse oximeter. The back was viewed using C-arm Fluoroscopy and prepped using Chloraprep as a cleansing solution and the L4-L5 interspace was palpated. Skin and subcutaneous tissues were anesthetized using lidocaine 1.5% and a 25-gauge needle. After this, an 18-gauge Touhy epidural needle was placed into the L4-L5 interspace and advanced using fluoroscopic guidance and loss of resistance to air until the epidural space was encountered. After confirmation of needle placement in the epidural space, with dye, a solution containing normal saline, 3 mL and Depo-Medrol 80 mg were incrementally injected into the lumbar epidural space. The patient tolerated the procedure well with no complications. The patient was observed in the Pain Clinic and then discharged home neurologically intact. Plan and Disposition:: Patient was discharged without incident.
[2024-01-21 12:26] VITALS: BP 167/85; PULSE 68; RESP 18; O2SAT 97
== END 2024-01-21 12:27 | disposition home or self-care (01) ==
PROVIDERS: PCP Family Medicine; Visit Provider Nurse Anesthetist, Certified Registered
DX: M51.16 Intervertebral disc disorders with radiculopathy, lumbar region (principal)
CPT/HCPCS: 62323; J1010

== ENCOUNTER 2024-02-06 13:37 | Outpatient (POV) | payer MEDICAID, SELFPAY ==
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
[2024-02-06 14:15] VITALS: BP 139/73; PULSE 71; RESP 18; O2SAT 97; BMI 38.5
== END 2024-02-06 23:59 | disposition home or self-care (01) ==
LOC: SC.PAIN 13:37
PROVIDERS: PCP Family Medicine; Visit Provider Nurse Practitioner Family
DX: M48.061 Spinal stenosis, lumbar region without neurogenic claudication (principal); M54.16 Radiculopathy, lumbar region; M51.36 Other intervertebral disc degeneration, lumbar region
CPT/HCPCS: 99212; G0463

== ENCOUNTER 2024-03-05 08:17 | Outpatient (POV) | payer MEDICAID, SELFPAY ==
[2024-03-05 08:27] VITALS: BP 148/81; PULSE 65; RESP 18; O2SAT 99; BMI 41.7
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
== END 2024-03-05 23:59 | disposition home or self-care (01) ==
LOC: SC.PAIN 08:18
PROVIDERS: PCP Family Medicine; Visit Provider Nurse Practitioner Family
DX: M51.36 Other intervertebral disc degeneration, lumbar region (principal); M48.061 Spinal stenosis, lumbar region without neurogenic claudication; M43.16 Spondylolisthesis, lumbar region; F17.210 Nicotine dependence, cigarettes, uncomplicated; Z73.89 Other problems related to life management difficulty
CPT/HCPCS: 99212; G0463

== ENCOUNTER 2024-03-17 14:03 | Day surgery (SDC) | payer MEDICAID, SELFPAY ==
[2024-03-17 14:14] VITALS: BP 145/93; PULSE 68; RESP 16; TEMP 36.7; O2SAT 96; BMI 38.5
[2024-03-17] MEDS: LIDOCAINE 1% 5ML PF VIAL 5 ML (14:24)
[2024-03-17] MEDS: BUPIVACAINE 0.25% 10ML INJ 25 MG IJ (14:24)
[2024-03-17 14:30] VITALS: BP 146/74; PULSE 63; RESP 16; O2SAT 96
--- NOTE | 2024-03-17 14:32 | P.PCN_ITS ---
Procedure Date: 03/17/24 Time: 14:15 Anesthesiologist:: González Etienne CRNA Complications:: None Pre-procedure Diagnosis:: Degenerative disc lumbar spine multilevels. Lumbar radiculopathy. Lumbar spondylosis. Multilevel lumbar facet arthropathy. Post-procedure Diagnosis:: Same. Indications for Procedure:: Patient is a pleasant 63-year-old male that comes our clinic today for round 2 of lumbar medial branch block L4-5, L5-S1 bilaterally. Patient reports moderate relief in his lumbar back pain after receiving around 1 blocks at the same levels. His main complaint is flexion, extension, left and right rotation. Standing and or sitting for any length of time is difficult due to low lumbar back pain. He rates his pain 7/10. Procedure Details:: Informed consent was obtained and the risk and benefits of the procedure was explained to the patient. Patient was taken to the procedure room where noninvasive monitors were placed, including noninvasive blood pressure cuff as well as pulse oximeter. The area over the lumbar spine was cleansed using chlorhexidine as a cleansing solution. I anesthetized the skin and subcutaneous tissues with 1% Lidocaine. I placed 22-gauge spinal needles into the facet joint/ medial branches of L4-L5, and L5-S1] bilaterally. Needle placement was confirmed with fluoroscopy. After confirmation of needle placement, each site was injected with 1 mL of 1% lidocaine and 0.25 % Marcaine and 10 mg of Depo- Medrol. A total of 80 mg of depo medrol was used for bilateral medial branch blocks of L4-L5, and L5-S1] bilaterally. Patient tolerated the procedure without difficulty. There were no complications. Plan and Disposition:: Patient was discharged without incident.
== END 2024-03-17 14:30 | disposition home or self-care (01) ==
LOC: SC.PAINP 14:04
PROVIDERS: PCP Family Medicine; Visit Provider Nurse Anesthetist, Certified Registered
DX: M47.816 Spondylosis without myelopathy or radiculopathy, lumbar region (principal); M51.16 Intervertebral disc disorders with radiculopathy, lumbar region
CPT/HCPCS: 64493; 64494; J1010

== ENCOUNTER 2024-04-03 11:30 | Outpatient (CLI) | payer MEDICAID, SELFPAY ==
[2024-04-03 12:00] LABS: Basophils # 0.1 K/mm3 (0-0.2); Basophils % 0.9 % (0.1-2.0); Eosinophils # 0.1 K/mm3 (0.0-0.4); Eosinophils % 2.5 % (0.1-12.0); Hematocrit 43.4 % (42.0-52.0); Hemoglobin 13.9 g/dL (14.1-18.0); Lymphocytes # 2.2 K/mm3 (0.7-4.5); Lymphocytes % 37.2 % (10-50); Mean Corpuscular Hemoglobin 29.3 pg (27.0-31.2); Mean Corpuscular Volume 91.4 fl (80-94); Mean Platelet Volume 8.4 fl (7.4-10.4); Monocytes # 0.3 K/mm3 (0.1-1.0); Monocytes % 5.7 % (1.7-9.3); Neutrophils # 3.1 K/mm3 (1.8-7.8); Neutrophils % 53.7 % (37.0-80.0); Platelet Count 224 K/mm3 (142-424); Red Blood Count 4.75 M/mm3 (4.60-6.20); Red Cell Distribution Width 14.1 % (11.5-17.5); White Blood Count 5.9 K/mm3 (4.8-10.8)
[2024-04-03 12:45] LABS: Alanine Aminotransferase 42 U/L (12-78); Alkaline Phosphatase 41 U/L (38-126); Anion Gap 9.8 mEq/L (5-15); Aspartate Amino Transferase 43 U/L (17-59); Bilirubin,Indirect 0.5 mg/dL (0.0-0.9); Bilirubin,Total 0.5 mg/dl (0.2-1.3); Bilirubin,Unconjugated 0.6 mg/dL (0.0-1.1); Blood Urea Nitrogen 18 mg/dl (9-20); Calcium 9.2 mg/dl (8.4-10.2); Carbon Dioxide 31 mmol/L (22.0-30.0); Chloride 102 mmol/L (98-107); Chol/HDL Ratio 4.3 (1-3.5); Cholesterol 191 mg/dl (140-200); Estimated Glomerular Filt Rate 137 ml/min (>60); GFR (African American) 166 ML/MIN (>60); Glucose 137 mg/dl (74-100); HDL Cholesterol 44 mg/dl (40-60); Potassium 4.8 mmoL/L (3.5-5.1); Sodium 138 mmol/L (136-145); Total Protein,Serum 7.3 g/dl (6.3-8.2); Triglycerides 168 mg/dl (30-150); VLDL Cholesterol 34 mg/dL (0-40)
[2024-04-03 12:55] LABS: Direct LDL Cholesterol 115.51 mg/dL (100-129)
[2024-04-03 12:59] LABS: Free T4 (Free Thyroxine) 1.06 ng/dl (0.78-2.19)
[2024-04-03 13:14] LABS: Thyroid Stimulating Hormone 1.42 uIU/mL (0.465-4.68)
== END 2024-04-03 23:59 | disposition home or self-care (01) ==
LOC: LAB 11:31
PROVIDERS: PCP Family Medicine; Visit Provider Physician Assistant
DX: R94.31 Abnormal electrocardiogram [ECG] [EKG] (principal); I10 Essential (primary) hypertension; E66.9 Obesity, unspecified; R60.0 Localized edema; Q24.5 Malformation of coronary vessels; G47.33 Obstructive sleep apnea (adult) (pediatric)
CPT/HCPCS: 36415; 80048; 80061; 80076; 83735; 84439; 84443; 85025

== ENCOUNTER 2024-04-08 11:05 | Outpatient (POV) | payer MEDICAID, SELFPAY ==
[2024-04-08 11:41] VITALS: BP 141/85; PULSE 63; RESP 16; O2SAT 97; BMI 38.5
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
== END 2024-04-08 23:59 | disposition home or self-care (01) ==
LOC: SC.PAIN 11:06
PROVIDERS: PCP Family Medicine; Visit Provider Nurse Practitioner Family
DX: M48.061 Spinal stenosis, lumbar region without neurogenic claudication (principal); M51.36 Other intervertebral disc degeneration, lumbar region; M43.16 Spondylolisthesis, lumbar region; F17.210 Nicotine dependence, cigarettes, uncomplicated; Z73.89 Other problems related to life management difficulty
CPT/HCPCS: 99212; G0463

== ENCOUNTER 2024-05-11 09:35 | Outpatient (POV) | payer MEDICAID, SELFPAY ==
[2024-05-11 09:49] VITALS: BP 156/88; PULSE 58; RESP 16; O2SAT 97; BMI 38.5
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
== END 2024-05-11 23:59 | disposition home or self-care (01) ==
LOC: SC.PAIN 09:36
PROVIDERS: PCP Family Medicine; Visit Provider Nurse Practitioner Family
DX: M51.36 Other intervertebral disc degeneration, lumbar region (principal); M43.16 Spondylolisthesis, lumbar region; F17.210 Nicotine dependence, cigarettes, uncomplicated
CPT/HCPCS: 99212; G0463

== ENCOUNTER 2024-07-13 14:30 | Outpatient (CLI) | payer MEDICAID, SELFPAY ==
[2024-07-13 18:04] LABS: Coronavirus 19, PCR Not Detected (NotDetected); Influenza A, PCR Not Detected (NotDetected); Influenza B, PCR Not Detected (NotDetected)
== END 2024-07-13 23:59 | disposition home or self-care (01) ==
LOC: LAB.DROPOF 07-14 15:28
PROVIDERS: PCP Nurse Practitioner; Visit Provider Nurse Practitioner
DX: J06.9 Acute upper respiratory infection, unspecified (principal)
CPT/HCPCS: 87636

== ENCOUNTER 2024-07-22 13:10 | Outpatient (POV) | payer MEDICAID, SELFPAY ==
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
[2024-07-22 14:40] VITALS: BP 160/80; PULSE 66; RESP 16; O2SAT 96; BMI 41.7
== END 2024-07-22 23:59 | disposition home or self-care (01) ==
LOC: SC.PAIN 13:12
PROVIDERS: PCP Family Medicine; Visit Provider Nurse Practitioner Family
DX: M48.061 Spinal stenosis, lumbar region without neurogenic claudication (principal); M51.16 Intervertebral disc disorders with radiculopathy, lumbar region
CPT/HCPCS: 99212; G0463

== ENCOUNTER 2024-10-19 09:23 | Outpatient (CLI) | payer MEDICAID, SELFPAY ==
[2024-10-19 09:52] LABS: Basophils # 0.1 K/mm3 (0-0.2); Basophils % 1.1 % (0.1-2.0); Eosinophils # 0.2 K/mm3 (0.0-0.4); Eosinophils % 3.7 % (0.1-12.0); Hematocrit 42.8 % (42.0-52.0); Hemoglobin 13.9 g/dL (14.1-18.0); Lymphocytes # 1.8 K/mm3 (0.7-4.5); Lymphocytes % 31.6 % (10-50); Mean Corpuscular HGB Conc 32.5 g/dL (31.8-35.4); Mean Corpuscular Hemoglobin 28.6 pg (27.0-31.2); Mean Corpuscular Volume 88.1 fl (80-94); Mean Platelet Volume 10.8 fl (7.4-10.4); Monocytes # 0.4 K/mm3 (0.1-1.0); Monocytes % 7.4 % (1.7-9.3); Neutrophils # 3.2 K/mm3 (1.8-7.8); Platelet Count 241 K/mm3 (142-424); Red Blood Count 4.86 M/mm3 (4.60-6.20); Red Cell Distribution Width 12.9 % (11.5-17.5); White Blood Count 5.7 K/mm3 (4.8-10.8)
[2024-10-19 10:18] LABS: Hemoglobin A1C 7.5 % (4.0-6.0)
[2024-10-19 10:29] LABS: Alanine Aminotransferase 37 U/L (12-78); Albumin Level 4.5 g/dl (3.5-5.0); Alkaline Phosphatase 48 U/L (38-126); Anion Gap 10.4 mEq/L (5-15); Aspartate Amino Transferase 35 U/L (17-59); Bilirubin,Direct 0.2 mg/dl (0.0-0.4); Bilirubin,Indirect 0.1 mg/dL (0.0-0.9); Bilirubin,Total 0.3 mg/dl (0.2-1.3); Bilirubin,Unconjugated 0.1 mg/dL (0.0-1.1); Blood Urea Nitrogen 16 mg/dl (9-20); Calcium 9.1 mg/dl (8.4-10.2); Carbon Dioxide 31 mmol/L (22.0-30.0); Chloride 102 mmol/L (98-107); Chol/HDL Ratio 4.2 (1-3.5); Cholesterol 174 mg/dl (140-200); Estimated Glomerular Filt Rate 137 ml/min (>60); GFR (African American) 165 ML/MIN (>60); Glucose 170 mg/dl (74-100); HDL Cholesterol 41 mg/dl (40-60); Potassium 4.4 mmoL/L (3.5-5.1); Sodium 139 mmol/L (136-145); Total Protein,Serum 7.6 g/dl (6.3-8.2); Triglycerides 126 mg/dl (30-150); VLDL Cholesterol 25 mg/dL (0-40)
[2024-10-19 10:40] LABS: Direct LDL Cholesterol 102.97 mg/dL (100-129)
[2024-10-19 10:47] LABS: Free T4 (Free Thyroxine) 1.23 ng/dl (0.78-2.19)
[2024-10-19 11:01] LABS: Thyroid Stimulating Hormone 2.03 uIU/mL (0.465-4.68)
== END 2024-10-19 23:59 | disposition home or self-care (01) ==
LOC: LAB 09:24
PROVIDERS: PCP Family Medicine; Visit Provider Physician Assistant
DX: R73.09 Other abnormal glucose (principal); G47.33 Obstructive sleep apnea (adult) (pediatric); Q24.5 Malformation of coronary vessels; R42 Dizziness and giddiness; R94.31 Abnormal electrocardiogram [ECG] [EKG]; I10 Essential (primary) hypertension; E66.9 Obesity, unspecified; Z68.41 Body mass index [BMI] 40.0-44.9, adult
CPT/HCPCS: 36415; 80048; 80061; 80076; 83036; 83735; 84439; 84443; 85025

== ENCOUNTER 2024-11-19 08:28 | Outpatient (POV) | payer MEDICAID, SELFPAY ==
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
[2024-11-19 09:32] VITALS: BP 139/90; BP 140/95; PULSE 67; RESP 14; O2SAT 95; BMI 38.5
== END 2024-11-19 23:59 | disposition home or self-care (01) ==
LOC: SC.PAIN 08:29
PROVIDERS: PCP Family Medicine; Visit Provider Nurse Practitioner Family
DX: M51.369 Other intervertebral disc degeneration, lumbar region without mention of lumbar back pain or lower extremity pain (principal); M43.16 Spondylolisthesis, lumbar region; F17.200 Nicotine dependence, unspecified, uncomplicated
CPT/HCPCS: 99212; G0463

== ENCOUNTER 2025-03-17 08:40 | Outpatient (POV) | payer MEDICAID, SELFPAY ==
--- OUTSIDE RECORDS SUMMARY | 2025-03-17 08:45 | XMS_ITS | Clinical Summary ---
Author Organization [facility] Address [address] [place] [address] Care Team Providers Care Ladle Repairman Name Role Phone Unavailable Primary Care Provider Unavailabl e Social History Tobacco Use Types Packs/Day Years Used Date Smoking Tobacco: Never Assessed Sex and Gender Information Value Date Recorded Sex Assigned at Not on file Legal Sex Male 12:02 PM EDT Gender Identity Not on file Sexual Orientation Not on file Last Filed Vital Signs Vital Sign Reading Time Taken Comments Blood Pressure 136/82 01/08/2023 12:04 PM EDT Pulse 57 01/08/2023 12:04 PM EDT Temperature - - Respiratory Rate - - Oxygen Saturation - - Inhaled Oxygen Concentration - - Weight 144 kg (318 lb) 01/08/2023 12:04 PM EDT Height 188 cm (6' 2 ) 01/08/2023 12:04 PM EDT Body Mass Index 40.83 01/08/2023 12:04 PM EDT Plan of Treatment Health Maintenance Due Date Last Done Comments [facility]-Depression Screening 1962 [facility]-/Child/Adol SDOH Screenings 1962 [facility]- SDOH Screenings 1980 [facility]-Adult SDOH Screenings 1980 [facility]-DTaP,Tdap,and Td Vaccine s (1 - Tdap) 1981 CT Colonography 2007 Colonoscopy 2007 FIT-DNA 2007 FIT 2007 FOBT 2007 Sigmoidoscopy 2007 [facility]-Colorectal Cancer Screening 2007 [facility]-Pneumococcal Vaccine: 50 + Years (1 of 1 - PCV) 2012 [facility]-Zoster Vaccines (1 of 2) 2012 [id number] Vaccine (1 - 20 24-25 season) 2024 [facility]-Influenza Vaccine (#1) 2025 07/21/2014 [facility]-RSV Vaccine: 60+ Years o r (1 - 1-dose 75+ series) 2037 HPV Vaccines Aged Out No longer eligi ble based on patient's age to complete this topic [facility]-HIB Vaccines Aged Out No longer e ligible based on patient's age to complete this topic [facility]-Hepatitis A Vaccines Aged Out No longer eligible based on patient's age to complete this topic [facility]-IPV Vaccines Aged Out No longer e ligible based on patient's age to complete this topic [facility]-Rotavirus Vaccines Aged Out No lo nger eligible based on patient's age to complete this topic Insurance MEDICAID
--- OUTSIDE RECORDS SUMMARY | 2025-03-17 08:45 | XMS_ITS | Clinical Summary ---
Author Organization [facility] Address [address] [place] [address] Phone Care Team Providers Care Supervisor Diagnostic Name Role Phone Helio Cuba MD Primary Care Provider [phone] Allergies No known active allergies Medications ETODOLAC (LODINE ORAL) Take by mouth. Active FUROSEMIDE (LASIX ORAL) Take by mouth. Active potassium chloride (K-DUR) 10 mEq tablet Take by mouth 2 times daily. Active HYDROcodone-acet aminophen (NORCO) 5-325 mg Oral Tablet Take 1 Tab by mouth every 6 hours as needed for Pain for up to 15 doses. 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 Social History Tobacco Use Types Packs/Day Years Used Date Smoking Tobacco: Former Smokeless Tobacco: Never Alcohol Use Standard Drinks/Week Comments Yes 0 (1 standard drink = 0.6 oz pur e alcohol) occas Sex and Gender Information Value Date Recorded Sex Assigned at Not on file Legal Sex Male 3:42 AM EDT Gender Identity Not on file Sexual Orientation Not on file Obstetrics History Last Filed Vital Signs Vital Sign Reading Time Taken Comments Blood Pressure 152/87 08/29/2017 3:09 PM EST Pulse 62 08/29/2017 3:09 PM EST Temperature 36.4 C (97.6 F) 08/29/2017 2:13 PM EST Respiratory Rate 16 08/29/2017 3:09 PM EST Oxygen Saturation 99% 08/29/2017 3:09 PM EST Inhaled Oxygen Concentration - - Weight 138.3 kg (305 lb) 08/29/2017 2:13 PM EST Height 188 cm (6' 2 ) 08/29/2017 2:13 PM EST Body Mass Index 39.16 08/29/2017 2:13 PM EST Plan of Treatment Health Maintenance Due Date Last Done Comments Annual Wellness Exam 1965 Hepatitis C Screening 1980 Cologuard 2007 Colon Cancer Screening 2007 Colonoscopy 2007 FIT 2007 Sigmoidoscopy 2007 Virtual Colonography 2007 Pneumococcal Vaccine 50+ (1 of 1 - PCV) 2012 Zoster (1 of 2) 2012 DTaP/TDaP/Td (2 - Tdap) 04/10/2020 04/10/2010 COVID-19 Vaccine (1 - 2023-2 5 season) 2024 Influenza Vaccine (#1) 2025 Hepatitis B Vaccine Aged Out No longe r eligible based on patient's age to complete this topic Meningococcal B Vaccine Aged Out No l onger eligible based on patient's age to complete this topic Insurance [employer] [facility] [place] [address] [employer] [place] Care Teams Supervisor Diagnostic Relationship Specialty Start Date End Date Helio Cuba MD PCP - General 04/10/10
--- OUTSIDE RECORDS SUMMARY | 2025-03-17 08:45 | XMS_ITS | Clinical Summary ---
Author Organization [facility] Address [address] [place] [id number] Care Team Providers Care Switchman Supervisor Name Role Phone Helio Cuba MD Primary Care Provider Source Comments This information has been disclosed to you from confidential records protectedfrom disclosure by state law. You shall make no further disclosure of thisinformation without the specific, written, and informed release of theindividual to whom it pertains, or as otherwise permitted by law. A generalauthorization for the release of medical or other information is not sufficientfor the purposes of therelease of HIV test results or diagnoses. [id number] Allergies No known active allergies Medications sacubitril/vals alee (ENTRESTO ORAL) Take by mouth. Unsure of dose but takes 2 times daily Active POTASSIUM ACETATE MISC Use 1 tablet as directed daily. Active Active Problems No known active problems Family History Medical History Relation Comments Cancer Father Cancer Mother Relation Status Comments Father Mother Social History Tobacco Use Types Packs/Day Years Used Date Smoking Tobacco: Former Cigarettes Smokeless Tobacco: Never Tobacco Cessation:Counseling Given: Not Answered Alcohol Use Standard Drinks/Week Comments Yes 0 (1 standard drink = 0.6 oz pur e alcohol) PHQ-2 Answer Date Recorded PHQ-2 Total Score 4 03/26/2023 Yearly Questionnaire Answer Date Record ed Do you need any assistance w ith obtaining housing, meals, medication, transportation or medical equipment? No 03/26 Assistance needed for: Not on file 3 Yearly Questionnaire Answer Date Record ed Do you need any assistance w ith obtaining housing, meals, medication, transportation or medical equipment? No 03/26 Assistance needed for: Not on file 3 Yearly Questionnaire Answer Date Record ed Do you need any assistance w ith obtaining housing, meals, medication, transportation or medical equipment? No 03/26 Assistance needed for: Not on file 3 Sex and Gender Information Value Date Recorded Sex Assigned at Not on file Legal Sex Male 4:56 PM EST Gender Identity Not on file Sexual Orientation Not on file Last Filed Vital Signs Vital Sign Reading Time Taken Comments Blood Pressure 145/80 03/26/2023 9:11 AM EDT Pulse 71 03/26/2023 9:11 AM EDT Temperature - - Respiratory Rate - - Oxygen Saturation 97% 03/26/2023 9:11 AM EDT Inhaled Oxygen Concentration 97% 03/26/2023 9 :11 AM EDT Weight 149.9 kg (330 lb 6.4 oz) 03/26/2023 9:11 AM EDT Height 188 cm (6' 2 ) 03/26/2023 9:11 AM EDT Body Mass Index 42.42 03/26/2023 9:11 AM EDT Plan of Treatment Health Maintenance Due Date Last Done Comments Abnormal Colonoscopy Follow Up 1962 Diabetes Screening 1962 Hepatitis C Screening (MyChart) 1962 Alcohol Misuse Screening 1980 HIV Screening 1980 Cologuard (FIT-DNA) 2007 Colonoscopy 2007 Colorectal Cancer Screening (MyChart) 2007 Stool Testing (gFOBT) 2007 Immunization: DTaP/Tdap/Td (1 - Tdap) 04/11/2010 Immunization: Pneumococcal (1 of 1 - PCV) 2012 Immunization: Zoster (1 of 2) 2012 Lung Cancer Screening 2012 Immunization: RSV (Adult) (1 - Risk 60-74 years 1-dose series) 2022 Depression Screening 03/26/2024 03/26/2023 Immunization: COVID-19 (1 - season) 2024 Immunization: Influenza (MyChart) (#1) [address] [place] [address] MEDICAID Care Teams Switchman Supervisor Relationship Specialty Start Date End Date Helio Cuba MD [address] [place] [address] PCP - General Family Medicine 03/14/23
[2025-03-17 08:58] VITALS: BP 137/79; PULSE 54; RESP 14; O2SAT 97; BMI 41.1
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
== END 2025-03-17 23:59 | disposition home or self-care (01) ==
LOC: SC.PAIN 08:41
PROVIDERS: PCP Family Medicine; Visit Provider Nurse Practitioner Family
DX: M43.16 Spondylolisthesis, lumbar region (principal); M48.061 Spinal stenosis, lumbar region without neurogenic claudication; M51.360 Other intervertebral disc degeneration, lumbar region with discogenic back pain only
CPT/HCPCS: 99212; G0463

== ENCOUNTER 2025-07-06 08:21 | Day surgery (SDC) | payer MEDICAID, SELFPAY ==
[2025-07-06 08:36] VITALS: BP 135/88; PULSE 61; RESP 16; O2SAT 98; BMI 39.1
[2025-07-06] MEDS: BUPIVACAINE 0.25% 10ML INJ 25 MG IJ (09:11)
[2025-07-06] MEDS: LIDOCAINE 1% 5ML PF VIAL 5 ML (09:11)
[2025-07-06] MEDS: DEXAMETHASONE 10MG/ML 1ML VIAL 10 MG (09:11)
[2025-07-06 09:14] VITALS: BP 135/88; PULSE 80; RESP 18; O2SAT 95
[2025-07-06 09:17] VITALS: BP 135/88; PULSE 80; RESP 18; O2SAT 95
--- NOTE | 2025-07-06 09:25 | P.PCN_ITS ---
Procedure Date: 07/06/25 Time: 09:00 Anesthesiologist:: Joselito Etienne CRNA Complications:: None Pre-procedure Diagnosis:: Degenerative disc lumbar spine multilevels. Lumbar radiculopathy. Lumbar spondylosis. Multilevel lumbar facet arthropathy. Chronic low back pain. Post-procedure Diagnosis:: Same. Indications for Procedure:: Patient is a pleasant 65-year-old male who comes our clinic today for bilateral lumbar L4-5 and L5-S1 radiofrequency ablation. Patient describes low lumbar back pain as constant, dull, aching. He reports difficulty with lumbar flexion, extension, left and right rotation. Patient reports responding very well to lumbar radiofrequency ablation 1 year ago. He rates his pain 7/10. Procedure Details:: Procedure Details: Lumbar RFA Informed consent was obtained and the risk and benefits of the procedure was explained to the patient. Patient was placed prone on the procedure table. The patient was prepped and draped in sterile fashion. C-arm fluoroscopy was used to view the lumbar spine. The skin and subcutaneous tissues were anesthetized using lidocaine. I placed 20-gauge RF needles into the facet joints of L3-L4, L4-L5 and L5-S1 bilaterally. We underwent sensory stimulation. There is good sensory stimulation at 0.8 V. We underwent motor stimulation. There is no motor stimulation at 2 V. We then anesthetized these levels with lidocaine and Depo- Medrol. I used a total of 10 mg of dexamethasone for all 3 levels. I then burned all 3 levels of L3-L4, L4-5 and L5-S1 bilaterally for 4 minutes at 80 ?C. Patient tolerated the procedure well with no complication. Plan and Disposition:: We will follow-up with this patient in 2 weeks. We will reevaluate her symptoms at that time. Plan and Disposition:: Patient was discharged without incident.
[2025-07-06 09:27] VITALS: BP 164/76; PULSE 56; RESP 16; O2SAT 96
== END 2025-07-06 09:27 | disposition home or self-care (01) ==
PROVIDERS: PCP Family Medicine; Visit Provider Nurse Anesthetist, Certified Registered
DX: M47.816 Spondylosis without myelopathy or radiculopathy, lumbar region (principal); M51.369 Other intervertebral disc degeneration, lumbar region without mention of lumbar back pain or lower extremity pain; I11.0 Hypertensive heart disease with heart failure; I50.30 Unspecified diastolic (congestive) heart failure; I25.2 Old myocardial infarction; G47.33 Obstructive sleep apnea (adult) (pediatric); F17.200 Nicotine dependence, unspecified, uncomplicated
CPT/HCPCS: 64635; 64636 ×2; J0665; J1100; J2003